=== PATIENT | female | born 1960 | race African-American/Black ===

== ENCOUNTER 2018-08-10 09:48 | Emergency (ER) | payer OTHER ==
[2018-08-10] MEDS ORDERED: Acetaminophen TAB* 325 MG PO ONE (10:48)
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
--- NOTE | 2018-08-10 11:26 | RAD ---
INDICATION: Head injury. COMPARISON: Comparison is made with a prior CT of the brain from October 28, 2016. TECHNIQUE: Contiguous axial sections of the brain were obtained from the skull base to the vertex without contrast. FINDINGS: The ventricles, cisterns and sulci are within normal limits. No significant focal abnormality or mass effect is seen. There is no evidence for hemorrhage. No significant focal osseous abnormality is seen. The visualized portion of the paranasal sinuses and mastoid air cells appear clear. IMPRESSION: NO EVIDENCE FOR ACUTE INTRACRANIAL ABNORMALITY.
--- NOTE | 2018-08-10 11:44 | RAD ---
INDICATION: Trauma. COMPARISON: There are no prior studies available for comparison. TECHNIQUE: Contiguous axial sections were obtained from the skull base through the T2 vertebra. Images were reconstructed in the sagittal and coronal planes. The very anterior inferior corner of the C7 vertebra is cut off on the examination. FINDINGS: VERTEBRA: The vertebra are in normal alignment. No prevertebral soft tissue swelling or fracture is seen. There are bilateral cervical ribs arising from the C7 vertebra. C2-C3: No significant disc bulge or herniation is noted. No spinal canal or neural foraminal narrowing is seen. C3-C4: No significant disc bulge or herniation is noted. No spinal canal or neural foraminal narrowing is seen. C4-C5: No significant disc bulge or herniation is noted. No spinal canal or neural foraminal narrowing is seen. C5-C6: There is mild uncinate process spurring and hypertrophic changes within the facet joints. No significant spinal canal or neural foraminal narrowing is seen. C6-C7: No significant disc bulge or herniation is noted. No spinal canal or neural foraminal narrowing is seen. IMPRESSION: 1. LIMITED STUDY THE VERY ANTERIOR INFERIOR CORNER OF THE C7 VERTEBRA IS CUT OFF ON THE STUDY. NO EVIDENCE FOR FRACTURE OR SUBLUXATION. 2. MILD CERVICAL SPONDYLOSIS DESCRIBED.
--- NOTE | 2018-08-10 12:06 | RAD ---
Indication: Chest pain. 2 views of the chest including dual energy PA views demonstrates no mediastinal shift. Heart is of normal size and configuration. Lung holly are clear. IMPRESSION: No active cardiopulmonary disease is noted.
--- NOTE | 2018-08-10 12:07 | RAD ---
Indication: Back pain after trauma. 2 views of the thoracic spine demonstrate vertebral bodies to be normal in height. No compression fracture is noted. Disc spaces all well-preserved. Diffuse osteopenia is noted. IMPRESSION: No fracture of the thoracic spine is noted.
[2018-08-10 13:14] VITALS: BP 170/101
== END 2018-08-10 13:12 | disposition home or self-care (01) ==
LOC: UCEAST 09:48
DX: S06.0X0A Concussion without loss of consciousness, initial encounter (principal); S50.02XA Contusion of left elbow, initial encounter; W03.XXXA Other fall on same level due to collision with another person, initial encounter; Y93.89 Activity, other specified; Y92.9 Unspecified place or not applicable; M54.6 Pain in thoracic spine; M47.812 Spondylosis without myelopathy or radiculopathy, cervical region; R03.0 Elevated blood-pressure reading, without diagnosis of hypertension
CPT/HCPCS: 70450; 71046; 72070; 72125; 99212; A9270-GY; G0463